=== PATIENT | female | born 1975 | race African-American/Black ===

== ENCOUNTER 2024-04-18 07:51 | Emergency (ER) | payer SELFPAY ==
[~2024-04-18] VITALS: Ht 167.6 cm; Wt 152.0 kg
[2024-04-18 07:57] VITALS: BP 171/107; TEMP 98.2; O2SAT 99
[2024-04-18 07:59] VITALS: PULSE 88
== END 2024-04-18 08:20 | disposition left against medical advice (07) ==
LOC: ER 07:51
DX: R44.3 Hallucinations, unspecified (principal); I10 Essential (primary) hypertension; F41.9 Anxiety disorder, unspecified
CPT/HCPCS: 81025; 99282